=== PATIENT | male | born 1935 | race Caucasian/White ===

== ENCOUNTER 2016-05-27 12:02 | Inpatient (IN) | payer OTHER ==
[~2016-05-27] VITALS: Ht 177.8 cm; Wt 91.0 kg
--- NOTE | ~2016-05-27 | EKG ---
[address] [address] ELECTROCARDIOGRAM REPORT Name: GUNJAN CLAYTON Room #: 438-P ADM IN M.R.#: [id number] Admission: 05/27/16 Attend Phys: Christie Jordan MD Discharge: Date of : 33 Report #: [id number] THIS REPORT FOR: //name// [facility] ED Test Date: 2016-05-27 Test Time: 12:10:02 Pat Name: GUNJAN CLAYTON Department: Room: [facility] Gender: M Road Cleaner: JUVENTINO : 1935 Requested By: Alfredo Siddiqi Order Number: [id number] MD: Nakul Warner Measurements Intervals [place] Rate: 89 P: 56 VA: 141 QRS: 42 QRSD: 80 T: 34 QT: 359 QTc: 437 Interpretive Statements Sinus rhythm Ventricular premature complex Compared to ECG 03/29/2016 17:27:46 Ventricular premature complex(es) now present Electronically Signed On 05-28-2016 8:15:43 CDT by Nakul Warner [email or web address] <ELECTRONICALLY SIGNED> By: Nakul Warner MD, [facility] 05/28/16 0815 1210 121 Nakul Warner MD, [facility] /EPI
--- NOTE | ~2016-05-27 | HC ---
[facility] [place] [address] CONSULTATION Name: GUNJAN CLAYTON Room #: 438-P [facility] IN M.R.#: [id number] Admission: 05/27/16 Attend Phys: Christie Jordan MD Discharge: 05/28/16 Date of : 33 Report #: [id number] THIS REPORT FOR: //name// CC: Christie Choi REASON FOR PRESENTATION: Was called due to abnormal labs. REASON FOR CONSULTATION: Acute kidney injury. HISTORY OF PRESENT ILLNESS: The patient is an 81-year-old with bladder cancer. During routine lab, he was found to have hemoglobin of 6.8 and was called to come to the emergency room. He was also found to have hyperkalemia with potassium of 6.2. His creatinine was elevated at 2.8. He denies any febrile illness. No nausea or vomiting. No diarrhea. Looking at the patient's medication, it does look like that the patient is maintained on an YEIMY inhibitor. He does not recall if he had been seen by blemish remover in the past or not. His main care is currently being recommended by the urology team; however, looking back, it does look like that he was seen by Dr. Estrada back in March 2016. His baseline creatinine is around 2.4. Because of the persistent hematuria, he was admitted for irrigation and he currently is having an irrigation hematuria. I was consulted to manage his acute kidney injury. PAST MEDICAL HISTORY: 1. Chronic obstructive pulmonary disease. 2. Degenerative joint disease. 3. Depression. 4. PPH. 5. Bladder cancer. 6. Hypertension. 7. Chronic kidney disease with a baseline creatinine of around 2.2. 8. Diabetes mellitus. REVIEW OF SYSTEMS: GENERAL: No fever or chills. CARDIOVASCULAR: Significant for no chest pain or shortness of breath. PULMONARY: No cough or hemoptysis. GASTROINTESTINAL: No nausea or vomiting. GENITOURINARY: Hematuria. MEDICATIONS: 1. Insulin. 2. Diltiazem. 3. Donepezil. 4. Ergocalciferol. 5. Aspirin. [facility] [address] [place] [address] CONSULTATION Name: GUNJAN CLAYTON Room #: 438-P [facility] IN ..#: [id number] Admission: 05/27/16 Attend Phys: Christie Jordan MD Discharge: 05/28/16 Date of : 33 Report #: [id number] 6. Lisinopril. 7. Esomeprazole. ALLERGIES: No known drug allergies. SOCIAL HISTORY: No drug or alcohol abuse. PHYSICAL EXAMINATION: GENERAL: He is alert, oriented, in no apparent distress. VITAL SIGNS: Blood pressure was 134/57, pulse 93. Temperature was 36.4. HEAD AND NECK: No jugular venous distention, no bruit, no thyromegaly. CHEST: Clear to auscultation bilaterally. CARDIOVASCULAR: Regular with no rub detected. ABDOMEN: Soft, nontender with no hepatosplenomegaly. LOWER EXTREMITIES: No edema. LABORATORY DATA: Reviewed. His creatinine is down to 2.5. His potassium is down to 5.1, hemoglobin is up to 8.4 after transfusion. Chest x-ray with no evidence of fluid overload. ASSESSMENT, IMPRESSION, PLAN: 1. Acute kidney injury. 2. Chronic kidney disease. 3. Hyperkalemia. 4. Bladder cancer with hematuria. 5. Hyperkalemia is ____ by his YEIMY inhibitor. This has been discontinued. The appropriate treatment was initiated and his potassium is trending down. I would keep off the YEIMY inhibitor for now. His creatinine seems to be trending down. Continue with the irrigation. 6. Watch urine output. 7. Watch electrolytes. 8. Expect him to fully recover back to his baseline, which is around 2.4. <ELECTRONICALLY SIGNED> By: Chinedu Jarvis MD 05/29/16 0748 [id number] 1249 Chinedu Jarvis MD /nt
--- NOTE | ~2016-05-27 | H ---
[facility] [place] [address] HISTORY AND PHYSICAL Name: GUNJAN CLAYTON Room #: 438-P [facility] IN M.R.#: [id number] Admission: 05/27/16 Attend Phys: Christie Jordan MD Discharge: 05/28/16 Date of : 33 Report #: [id number] THIS REPORT FOR: //name// CC: Christie Choi DATE OF SERVICE: 05/27/2016 CHIEF COMPLAINT: Abnormal labs. HISTORY OF PRESENT ILLNESS: The patient is an 81-year-old man who was treated about a [facility] ago [facility]. He had cancer cauterization, followed by Lema placement. The patient has on and off hematuria since then. Apparently, the patient had blood work, and he was found to be anemic, with hemoglobin of 6.8, and he was also found to have hyperkalemia. He was transferred here for further evaluation and treatment. The patient has multiple chronic medical conditions including chronic kidney disease stage 3, oxygen dependent COPD, hypertension and diabetes mellitus type 2. Here in the Emergency Room, potassium was 6.2. Creatinine was 2.8, from baseline of around 2.1-2.2. Currently, the patient feels weak and tired. He has no specific complaints. He has no pain. His shortness of breath is at his baseline. He has no palpitations or chest pain. PAST MEDICAL HISTORY: 1. Oxygen dependent COPD. 2. Asthma. 3. Depression. 4. Degenerative joint disease. 5. Benign prostatic hypertrophy. 6. Chronic kidney disease stage III. 7. Hypertension. 8. Diabetes mellitus type 2. 9. Chronic constipation. 10. Bladder cancer, recent cauterization as above. HOME MEDICATIONS: Extensive list is reviewed, and this is documented in the patient's chart. Please refer to the medication reconciliation section. FAMILY HISTORY: Reviewed and not pertinent to the patient's current condition. SOCIAL HISTORY: The patient lives with his . He does not smoke cigarettes and does not drink alcohol. [facility] [address] [place] [address] HISTORY AND PHYSICAL Name: GUNJAN CLAYTON Room #: 438-P [facility] IN M.R.#: [id number] Admission: 05/27/16 Attend Phys: Christie Jordan MD Discharge: 05/28/16 Date of : 33 Report #: [id number] REVIEW OF SYSTEMS: As above in HPI section, all others negative. PHYSICAL EXAMINATION: GENERAL: The patient is an elderly man who is in no apparent distress. VITAL SIGNS: Blood pressure is 166/53, heart rate is 79, respirations 12 and temperature is 97.6. HEENT: Pupils are equal. Eye movements are normal. Sclerae are anicteric. Oral mucosa is moist. The ear examination is deferred. NECK: Supple. Thyromegaly is not palpated. The patient has no JVD. RESPIRATORY: Chest moves symmetrically with breathing. Lungs are clear to auscultation bilaterally. CARDIOVASCULAR: The patient has regular rhythm and rate. He has no murmurs, gallops or rubs. GASTROINTESTINAL: Abdomen is soft, nondistended and nontender. Bowel sounds are present. Hepatomegaly or splenomegaly is not palpated. NEUROLOGIC: The patient is alert and awake. He is oriented in self. His examination is nonfocal. SKIN: Skin is dry and warm. The patient has no skin lesions. LABORATORY DATA: Basic metabolic profile: Sodium is 137, potassium is 6.2, chloride 103, bicarbonate is 30, BUN is 80, creatinine is 2.8, from baseline 2.1-2.2. Liver function tests are normal. Albumin is 2.8. BNP is high at 4828. CBC: White count is 8.2, hemoglobin is 6.8, hematocrit is 22.3 and platelets 372. Chest x-ray, the patient has left lung scarring, without acute findings. ASSESSMENT AND PLAN: 1. Symptomatic anemia, likely due to hematuria. As noted, the patient had bladder cancer cauterization about a week ago. Urologist will be consulted for further evaluation and treatment. We will transfuse patient with 2 units of the packed red blood cells, and he will be reassessed in the morning. 2. Hyperkalemia, with potassium of 6.2. The patient has mild peak T waves. The patient was treated with glucose and insulin as well as he received Kayexalate. BMP will be repeated later today, as well as EKG. The patient is not on potassium supplementation or any medications that can raise the potassium. 3. Acute kidney injury on chronic kidney disease stage III. Likely prerenal. The patient will be treated with IV fluids. 4. Hypertension. Blood pressure is slightly elevated. The patient is on diltiazem at home, which will be continued. 5. Diabetes mellitus type 2. The patient takes Levemir 6 units at night. This will be continued, as well as high blood sugars will be treated with sliding scale insulin. [facility] [address] [place] [address] HISTORY AND PHYSICAL Name: GUNJAN CLAYTON Room #: 438-P [facility] IN .R.#: [id number] Admission: 05/27/16 Attend Phys: Christie Jordan MD Discharge: 05/28/16 Date of : 33 Report #: [id number] 6. Deep vein thrombosis prophylaxis. Anticoagulation will be avoided for now. We will place sequential compression devices. <ELECTRONICALLY SIGNED> By: Christie Jordan MD 05/31/16 2227 1557 1659 Christie Jordan MD /nt
[~2016-05-27 12:02] MED LIST: ACETAMINOPHEN325 M1 PO; ADVAIR 250-501 EACH INH; ALBUTEROL2.5 MG/0.1 INH; ALBUTEROL2.5 MG/0.5 INH; ALBUTEROL2.5 MG/31 INH; ALENDRONATE SOD70 MG PO; ARICEPT 5 MG TAB5 MG PO; ARICEPT10 MG PO; ASPIR 8181 MG PO; AUGMENTIN 500-1 EACH PO; BASE, PCCA RAPID1 GM PO; BROVANA15 MCG/2 M INH; CALCIUM 600 +1 EAC1 PO; CALCIUM CITRAT1 EA19 PO; CARDIZEM CD 18180 M3 PO; CARDIZEM CD 30300 M1 PO; CARDIZEM CD240 MG PO; CARVEDILOL12.5 MG PO; CEFDINIR300 MG PO; CENTRUM TABLET1 EACH PO; DILTIAZEM 24HR180 M1 PO; DILTIAZEM 24HR180 MG PO; DITROPAN XL10 M1 PO; DUONEB 2.5-0.5 M3 ML INH; ERGOCALCIF50000 UNIT PO; FOSAMAX 70 MG T70 MG PO; FUROSEMIDE 40 M40 M1 PO; HYDROCERIN CREA1 JAR TOP; HYDROCODON-ACE1 EAC7 PO; HYDROCODONE-AP1 EAC6 PO; HYTRIN 1 MG CAP1 MG PO; HYTRIN 2MG CAPSU2 M1 PO; IRON325 PO; JALYN 0.5-0.41 EACH PO; LANTUS100 UNIT/M SUBQ; LANTUSSOLASTAR SUBQ; LASIX 40 MG TAB40 M2 PO; LEVAQUIN 500 M500 M2 PO; LEVAQUIN 500 M500 M4 PO; LEVAQUIN 500 M500 M7 PO; LEVEMIR SUBQ; LIPITOR10 MG PO; LIPITOR20 MG PO; LOVASTATIN 20 M20 MG PO; MAG-OXIDE400 MG PO; MAGOX 400400 MG PO; MIRALAX17 GM PO; MUCINEX600 MG PO; NEXIUM40 MG PO; NORCO 5-325 TA1 EACH PO; NOVOLOG100 UNIT/1; NOVOLOG100 UNIT/1 SUBQ; OXYBUTININ PO; OXYBUTYNIN 5 MG5 M2 PO; OXYBUTYNIN ER 55 M1 PO; PAXIL10 MG; POTASSIUM20 PO; PREDNISONE 10 M10 M1 PO; PREDNISONE 10 M10 MG; PRINIVIL20 M1 PO; PRINIVIL20 MG PO; PROAIR HFA8.5 GM INH; PROSCAR 5MG TABL5 M1 PO; PROTONIX40 M1 PO; PROVENTIL HFA6.7 G1 INH; PULMICORT0.5 MG/22 INH; SENOKOT-S1 TA1 PO; SIMVASTATIN20 MG PO; SIMVASTATIN40 MG PO; SPIRIVA INH; SPIRIVA18 MCG INH; STOOL SOFTENER100 MG PO; UNICOMPLEX M TA1 TA1 PO; VICODIN 5-5001 EACH PO; VITAMIN D 5050000 I1 PO; WELLBUTRIN 75 M75 M1 PO; ZOCOR20 MG PO
[2016-05-27 12:03] VITALS: BP 134/57
[2016-05-27 12:48] LABS: HEMATOCRIT 22.3 % (42.0-52.0); MCH 24.1 pg (26.0-34.0); MCHC 30.7 g/dL (28.0-37.0); MCV 78.7 fL (80.0-100.0); PLATELET COUNT 372 thou/uL (150-400); RBC 2.83 mil/uL (4.50-6.00); RDW 19.8 % (10.5-14.5); WBC 8.2 thou/uL (4.0-11.0)
[2016-05-27 12:50] LABS: HEMOGLOBIN 6.8 gm/dL (14.0-18.0)
[2016-05-27 12:51] LABS: MANUAL DIFF YES
[2016-05-27 13:02] LABS: ANION GAP 4 mmol/L (7-16); BUN 80 mg/dL (7-18); CALCIUM 9.4 mg/dL (8.5-10.1); CHLORIDE 103 mmol/L (98-107); CO2 30 mmol/L (21-32); CREATININE 2.8 mg/dL (0.7-1.3); GLUCOSE 95 mg/dL (74-106); NT-PRO BRAIN NAT PEPTIDE 4824 pg/mL (<300); SODIUM 137 mmol/L (136-145); TROPONIN-I < 0.04 ng/mL (<0.04-0.07)
[2016-05-27 13:03] LABS: POTASSIUM 6.2 mmol/L (3.5-5.1)
[2016-05-27 13:11] LABS: ABSOLUTE NEUTROPHILS 6.7 thou/uL (1.4-8.2); ANISOCYTOSIS 1+; TOTAL CELL COUNT 100
[2016-05-27] MEDS ORDERED: NASONEX17 GM NASAL (14:20)
[2016-05-27] MEDS ORDERED: CARTIA XT180 M1 PO (14:20)
[2016-05-27] MEDS ORDERED: NEXIUM40 MG PO (14:21)
[2016-05-27] MEDS ORDERED: TESSALON PERLE100 MG PO (14:24)
[2016-05-27 15:02] VITALS: BP 166/53
[2016-05-27 15:30] VITALS: BP 150/67
[2016-05-27 17:15] VITALS: BP 148/70; BP 155/83
[2016-05-27 18:06] LABS: CALCIUM 9.3 mg/dL (8.5-10.1); CREATININE 2.7 mg/dL (0.7-1.3); POTASSIUM 5.5 mmol/L (3.5-5.1)
[2016-05-27 21:31] VITALS: BP 142/70; BP 153/70; BP 161/75
[2016-05-28 05:25] VITALS: BP 141/73
[2016-05-28 05:53] LABS: HEMATOCRIT 26.4 % (42.0-52.0); HEMOGLOBIN 8.4 gm/dL (14.0-18.0); MCH 25.4 pg (26.0-34.0); MCHC 31.8 g/dL (28.0-37.0); MCV 79.9 fL (80.0-100.0); PLATELET COUNT 358 thou/uL (150-400); RDW 19.3 % (10.5-14.5); WBC 8.5 thou/uL (4.0-11.0)
[2016-05-28 06:12] LABS: CALCIUM 9.2 mg/dL (8.5-10.1); CREATININE 2.5 mg/dL (0.7-1.3); POTASSIUM 5.1 mmol/L (3.5-5.1)
[2016-05-28 06:21] LABS: MANUAL DIFF YES
[2016-05-28 07:56] VITALS: BP 127/57
[2016-05-28 08:08] LABS: ABSOLUTE NEUTROPHILS 7.5 thou/uL (1.4-8.2); PLATELET ESTIMATE NORMAL; TOTAL CELL COUNT 100
[2016-05-28 08:14] LABS: ANISOCYTOSIS 2+; LARGE PLATELETS FEW
[2016-05-28 08:15] LABS: HYPOCHROMASIA 1+; MICROCYTES 1+; OVALOCYTES FEW; POIKILOCYTOSIS SLIGHT; POLYCHROMASIA 1+
[2016-05-28 11:23] VITALS: BP 139/60
[2016-05-28 15:06] VITALS: BP 128/39
[2016-05-28 17:59] VITALS: BP 128/39
[2016-05-28 18:46] VITALS: BP 128/39
== END 2016-05-28 18:30 | disposition home or self-care (01) | DRG 682 ==
LOC: ER 12:02 → EROBS 14:13 → 4S 14:13
PROVIDERS: Emergency Medicine; Internal Medicine Endocrinology, Diabetes & Metabolism
PROC: 30233N1 Transfusion of Nonautologous Red Blood Cells into Peripheral Vein, Percutaneous Approach (ICD-10-PCS; principal; 2016-05-27)
DX: N17.9 Acute kidney failure, unspecified (principal); J96.00 Acute respiratory failure, unspecified whether with hypoxia or hypercapnia; D62 Acute posthemorrhagic anemia; J44.9 Chronic obstructive pulmonary disease, unspecified; F32.9 Major depressive disorder, single episode, unspecified; M81.0 Age-related osteoporosis without current pathological fracture; E78.5 Hyperlipidemia, unspecified; M19.90 Unspecified osteoarthritis, unspecified site; N40.0 Benign prostatic hyperplasia without lower urinary tract symptoms; K59.00 Constipation, unspecified; K21.9 Gastro-esophageal reflux disease without esophagitis; N18.3 Chronic kidney disease, stage 3 (moderate); R31.9 Hematuria, unspecified; I12.9 Hypertensive chronic kidney disease with stage 1 through stage 4 chronic kidney disease, or unspecified chronic kidney disease; E11.22 Type 2 diabetes mellitus with diabetic chronic kidney disease; E87.5 Hyperkalemia; Z85.51 Personal history of malignant neoplasm of bladder; Z89.021 Acquired absence of right finger(s)
CPT/HCPCS: 10100